=== PATIENT | male | born 1995 | race Caucasian/White ===

== ENCOUNTER 2019-05-23 06:17 | Emergency (ER) | payer SELFPAY ==
[~2019-05-23] VITALS: Ht 188 cm; Wt 99.8 kg
--- NOTE | 2019-05-23 06:18 | NUR ---
ED Nurse Note: PT TATI SHAIKH [address] FOUND OD ON OPIATE OF UNK SOURCE. EMS GAVE NARCAN IM AND RESPONDED. PT STATES HE TOOL "PILLS" BUT DOES NOT SPECIFY WHICH DRUG. PT HR AT 121, OTHERWISE VSS, RAJAT. ERMD AT BEDSIDE. WILL CONTINUE TO MONITOR PATIENT.
[2019-05-23 06:27] VITALS: BP 144/94
--- NOTE | 2019-05-23 06:28 | NUR ---
ED Nurse Note: BLOOD AND URINE COLLECTED AND SENT TO LAB
--- NOTE | 2019-05-23 07:05 | NUR ---
ED Nurse Note: Received report from Silverio Correa RN. Patient resting in bed, currently no acute distress. Patient is drowsy, able to respond to questions. Patient states he remembers what happened, and that he has never had a reaction like this before. Patient on the bus driver/monitor. Per Silverio Correa RN, all labs sent. IV fluids are running.
[2019-05-23 07:10] VITALS: BP 136/92
--- NOTE | 2019-05-23 07:15 | NUR ---
ED Nurse Note: Patient's RR 8, 02 sat 94%, Dr. Sarmiento notified.
[2019-05-23 07:26] LABS: HEMATOCRIT 48.9 % (42.0-52.0); MEAN CORPUSCULAR VOLUME 100 FL (80-99); PLATELET COUNT 203 K/UL (150-450); RED CELL DISTRIBUTION WIDTH 12.7 % (11.6-14.8)
--- NOTE | 2019-05-23 07:34 | Emergency Room Report ---
History of Present Illness General Chief Complaint: Overdose Source: Patient Present Illness HPI 24-year-old male presents ED status post overdose. Brought in by EMS from Street today. Witnesses called 911. Patient appeared altered. Was given Narcan and woke up. Patient states he feels better. Admits to taking pills but will not specify what he took. Denies SI or HI. Denies pain. Patient was vomiting in triage denies chest pain or shortness of breath. Denies abdominal pain. No other aggravating relieving factors. Denies any other associated symptoms Allergies: Coded Allergies: No Known Allergies (Unverified , 05/23/19) Patient History Past Medical History: none Past Surgical History: none Pertinent Family History: none Social History: Reports: drug use; Denies: smoking, alcohol use Immunizations: UTD Reviewed Nursing Documentation: PMH: Agreed; PSxH: Agreed Review of Systems All Other Systems: negative except mentioned in HPI Physical Exam Vital Signs Date Time Temp Pulse Resp B/P (MAP) Pulse Ox O2 Delivery O2 Flow Rate FiO2 05/23/19 06:10 98.4 138 16 130/90 (103) 96 Room Air 05/23/19 06:27 97 Sp02 EP Interpretation: reviewed, normal General Appearance: no apparent distress, alert, GCS 15, non-toxic, lethargic Head: normocephalic, atraumatic Eyes: bilateral eye normal inspection, bilateral eye PERRL ENT: hearing grossly normal, normal pharynx, no angioedema, normal voice Neck: full range of motion, supple/symm/no masses Respiratory: chest non-tender, lungs clear, normal breath sounds, speaking full sentences Cardiovascular #1: regular rate, rhythm, no edema Cardiovascular #2: 2+ carotid (R), 2+ carotid (L), 2+ radial (R), 2+ radial (L) , 2+ dorsalis pedis (R), 2+ dorsalis pedis (L) Gastrointestinal: normal bowel sounds, non tender, soft, non-distended, no guarding, no rebound Rectal: deferred Genitourinary: normal inspection, no CVA tenderness Musculoskeletal: back normal, normal range of motion, gait/station normal, non- tender Neurologic: alert, motor strength/tone normal, oriented x3, sensory intact, responsive, speech normal Psychiatric: judgement/insight normal, memory normal, mood/affect normal, no suicidal/homicidal ideation Reflexes: 3+ bicep (R), 3+ bicep (L), 3+ tricep (R), 3+ tricep (L), 3+ knee (R) , 3+ knee (L) Skin: no rash Lymphatic: no adenopathy Medical Decision Making Diagnostic Impression: Primary Impression: Drug overdose Qualified Codes: T50.901A - Poisoning by unspecified drugs, medicaments and biological substances, accidental (unintentional), initial encounter ER Course Hospital Course 24-year-old M presents to ED with altered mental status. overdosed on medication. given narcan in field Differential diagnoses include: Psychosis, EtOH, drug abuse Clinical course patient placed on stretcher. On monitor worker. After initial history and physical ordered labs, IV fluids Labs reviewed-electrolytes okay, no leukocytosis, hemoglobin/hematocrit stable, tox panel + for multilple substances Patient observed on monitor worker. Vitals stable. Protecting airway. Becoming more alert. Not requiring additional Narcan. Discussed findings with patient. Will discharge to home Safe for discharge for close outpatient follow-up. Will provide referrals for detox. i. I feel this is a highly complex case requiring extensive working including EKG/Rhythm strip, Xray/CT/US, Blood/urine lab work, repeat exams while in ED, and administration of strong opiates/narcotics for pain control, admission to hospital or close patient follow up. Diagnosis -drug overdose Stable and discharged to home. Followup with PMD. Return to ED if symptoms recur or worsen Labs Test 05/23/19 06:23 05/23/19 06:25 White Blood Count 20.0 K/UL (4.8-10.8) Red Blood Count 4.90 M/UL (4.70-6.10) Hemoglobin 17.0 G/DL (14.2-18.0) Hematocrit 48.9 % (42.0-52.0) Mean Corpuscular Volume 100 FL (80-99) Mean Corpuscular Hemoglobin 34.6 PG (27.0-31.0) Mean Corpuscular Hemoglobin Concent 34.8 G/DL (32.0-36.0) Red Cell Distribution Width 12.7 % (11.6-14.8) Platelet Count 203 K/UL (150-450) Mean Platelet Volume 8.0 FL (6.5-10.1) Neutrophils (%) (Auto) % (45.0-75.0) Lymphocytes (%) (Auto) % (20.0-45.0) Monocytes (%) (Auto) % (1.0-10.0) Eosinophils (%) (Auto) % (0.0-3.0) Basophils (%) (Auto) % (0.0-2.0) Differential Total Cells Counted 100 Neutrophils % (Manual) 90 % (45-75) Lymphocytes % (Manual) 9 % (20-45) Monocytes % (Manual) 1 % (1-10) Eosinophils % (Manual) 0 % (0-3) Basophils % (Manual) 0 % (0-2) Band Neutrophils 0 % (0-8) Platelet Estimate Adequate Platelet Morphology Normal Red Blood Cell Morphology Macrocytosis 1+ Sodium Level 143 MMOL/L (136-145) Potassium Level 4.2 MMOL/L (3.5-5.1) Chloride Level 102 MMOL/L (98-107) Carbon Dioxide Level 19 MMOL/L (21-32) Anion Gap 22 mmol/L (5-15) Blood Urea Nitrogen 12 mg/dL (7-18) Creatinine 1.7 MG/DL (0.55-1.30) Estimat Glomerular Filtration Rate 49.0 mL/min (>60) Glucose Level 259 MG/DL (74-106) Calcium Level 9.0 MG/DL (8.5-10.1) Total Bilirubin 1.0 MG/DL (0.2-1.0) Aspartate Amino Transf (AST/SGOT) 50 U/L (15-37) Alanine Aminotransferase (ALT/SGPT) 84 U/L (12-78) Alkaline Phosphatase 61 U/L (46-116) Total Protein 8.3 G/DL (6.4-8.2) Albumin 4.4 G/DL (3.4-5.0) Globulin 3.9 g/dL Albumin/Globulin Ratio 1.1 (1.0-2.7) Salicylates Level 3.6 ug/mL (2.8-20) Acetaminophen Level < 2 MCG/ML (10-30) Serum Alcohol < 3 mg/dL Urine Opiates Screen Negative (NEGATIVE) Urine Barbiturates Screen Negative (NEGATIVE) Phencyclidine (PCP) Screen Negative (NEGATIVE) Urine Amphetamines Screen Positive (NEGATIVE) Urine Benzodiazepines Screen Negative (NEGATIVE) Urine Cocaine Screen Positive (NEGATIVE) Urine Marijuana (THC) Screen Positive (NEGATIVE) Last Vital Signs Date Time Temp Pulse Resp B/P (MAP) Pulse Ox O2 Delivery O2 Flow Rate FiO2 05/23/19 07:10 98.3 119 8 136/92 94 Room Air 05/23/19 06:27 97 Status: improved Disposition: HOME, SELF-CARE Condition: Stable Referrals: NOT CHOSEN IPA/MD,REFERRING (PCP) Gurjit Sarmiento MD May 23, 2019 07:34
--- NOTE | 2019-05-23 07:35 | NUR ---
ED Nurse Note: Jenn Cates at bedside. Patient gave permission to share information with her.
[2019-05-23 07:40] LABS: ANION GAP 22 mmol/L (5-15); BLOOD UREA NITROGEN 12 mg/dL (7-18); CARBON DIOXIDE 19 MMOL/L (21-32); CHLORIDE 102 MMOL/L (98-107); CREATININE 1.7 MG/DL (0.55-1.30); POTASSIUM 4.2 MMOL/L (3.5-5.1); SODIUM 143 MMOL/L (136-145)
[2019-05-23 07:43] LABS: ALANINE AMINOTRANSFERASE 84 U/L (12-78); ALBUMIN 4.4 G/DL (3.4-5.0); ALBUMIN/GLOBULIN RATIO 1.1 (1.0-2.7); ALKALINE PHOSPHATASE 61 U/L (46-116); ASPARTATE AMINO TRANSFERASE 50 U/L (15-37)
--- NOTE | 2019-05-23 08:23 | NUR ---
ED Nurse Note: Dr. Sarmiento at bedside.
[2019-05-23 08:42] VITALS: BP 110/78
--- NOTE | 2019-05-23 09:13 | NUR ---
ED Nurse Note: Patient more alert, able to verbalize needs to fiance and staff, requested to drink apple juice. Tolerated apple juice well, no nausea or vomiting.
--- NOTE | 2019-05-23 10:06 | NUR ---
Chito fitch phone # [phone]-Loan Villanueva
[2019-05-23 10:45] VITALS: BP 115/80
--- NOTE | 2019-05-23 11:21 | NUR ---
ED Nurse Note: Patient resting in bed, no s/s of acute distress. Patient able to verbalize needs, but is very tired.
[2019-05-23 13:15] VITALS: BP 122/78
--- NOTE | 2019-05-23 13:15 | NUR ---
ED Nurse Note: Patient AxO x 4, able to stand and walk with steady gait. Patient's fiance called an [employer] for the patient, accompanied patient to the [employer]. IV and ID band removed, VSS. Patient verbalized understanding of DC instructions.
== END 2019-05-23 13:15 | disposition home or self-care (01) ==
LOC: EDBD 06:17 → EMR 06:30
DX: T50.901A Poisoning by unspecified drugs, medicaments and biological substances, accidental (unintentional), initial encounter (principal); X58.XXXA Exposure to other specified factors, initial encounter; Y92.9 Unspecified place or not applicable
CPT/HCPCS: 36415; 80053; 80307; 85007; 85025; 96361; 96374; 96375; 99284; G0480; J2405; J7030; S0028